=== PATIENT | male | born 1970 ===

== ENCOUNTER → 2019-02-25 | Outpatient (CLI) | payer OTHER ==
[~2019-02-25] MED LIST: IOHEXOL 180 MG/ML 10 ML VIAL. IT ONE; LIDOCAINE 1% Multi-Dose 20 ML VIAL. ID ONE
--- NOTE | 2019-02-25 12:58 | KCIC ---
CT lumbar spine exam History: Low back pain, previous back surgery Technique: CT imaging was performed of the lumbar spine after injection for lumbar myelogram. Multiplanar reconstruction images are submitted. Exposure: One or more of the following individualized dose reduction techniques were utilized for this examination: 1. Automated exposure control 2. Adjustment of the mA and/or kV according to patient size 3. Use of iterative reconstruction technique. Comparison: February 01, 2019 outside facility MRI lumbar spine exam Findings: Lumbar vertebral body stature and AP alignment are maintained. Conus terminates near the inferior aspect of L1. There is very mild inferior lumbar levoscoliosis. There is mild degenerative disc disease at L2-3 and L4-5 and to a somewhat lesser degree at L3-4. There is unfused apophysis on the right at L1. There is nonspecific lytic focus of the right iliac bone about 1.2 transverse by 1.1 cm AP. T12-L1: Spinal canal and right neural foramen are adequate, very minimal posterior narrowing of left neural foramen by facet. L1-L2: Neural foramina and spinal canal are adequate. There is [id number] facet degenerative change. L2-L3: There is moderate to severe facet degenerative change. There is minimal buckling of the ligamentum flavum. There is minimal broad disc osteophyte complex with mild indentation upon the ventral thecal sac, thecal sac not significantly narrowed. Neural foramina are adequate. L3-L4: There is fairly severe facet degenerative change. There is mild buckling of the ligamentum flavum. There is negligible disc osteophyte complex. There is overall mild attenuation of the thecal sac, adequate subarachnoid space. There is [id number] narrowing of the right neural foramen by disc osteophyte complex and facet. There is moderate to severe narrowing of the left neural foramen in part from disc osteophyte complex although there is probably a small extrusion extending above the intervertebral disc space in the inferior left neural foramen contacting the exiting left L3 nerve root, such as seen sagittal image 13 series 605. L4-L5: There is left laminectomy defect. There is moderate facet degenerative change. There is very minimal disc osteophyte complex. Spinal canal is overall adequate. There is moderate to severe narrowing of the left neural foramen by facet and disc osteophyte complex with effacement of perineural fat surrounding the exiting left L4 nerve root, also disc osteophyte complex near the undersurface proximal extraforaminal left L4 nerve root without displacement. There is overall moderate narrowing of the right neural foramen. L5-S1: There is moderate to severe facet degenerative change somewhat greater on the left. Spinal canal is adequate. There is fairly severe narrowing of the left neural foramen mostly from posteriorly by facet including by more focal osteophyte contacting the posterior surface exiting left L5 nerve root. Right neural foramen is adequate. Impression: 1. There is no significant lumbar spinal stenosis, mild attenuation of the thecal sac L3-4 and mild indentation upon the ventral thecal sac at L2-3. 2. There is neural foramina compromise as stated, more significant narrowing on the left at L3-4 through L5-S1 and to lesser degree on the right at L3-4 and L4-5. 3. There is mild degenerative disc disease greatest L3-3 and L4-5. There is mild spondylosis. 4. There is nonspecific lytic lesion of the visualized right iliac bone. This could be a hemangioma especially if there is no pain referable to this region, although nonspecific features by CT. Electronically signed by: Franki Delgado MD (02/25/2019 12:55 PM) [email or web address]
--- NOTE | 2019-02-25 13:01 | KCIC ---
Lumbar Myelogram History: Lumbar radiculopathy Technique: Patient was informed of the risks of the procedure to include pain, infection, bleeding, seizures, nerve root injury, and allergic reaction to the contrast. All questions were answered. Patient signed a written consent form for a lumbar myelogram. The patient was placed in a prone oblique position on the flouroscopy table. External site of the lower back was prepped and draped in the usual sterile fashion. Betadine was utilized for cleansing solution. 1% lidocaine was utilized for local anesthesia at the anticipated site of puncture right L4-5 interlaminar space. A 19-gauge guiding needle was advanced into the soft tissues. Through the guiding needle, a 25 gauge Mello needle was advanced until there was return of cerebral spinal fluid. Approximately 15 cc of Omnipaque 180 were then injected during fluoroscopic visualization. The needles were removed. Bandage was applied. Fluoroscopic spot images including standing images were acquired of the lumbar spine. The patient was then transferred to the CT department for CT examination of the lumbar spine. There were no immediate complications. Fluoroscopy time: 1 minute 11 seconds, 14 images Findings: There is no evidence of myelographic block. There are small anterior extradural defects L2-3, L3-4, L4-5, greatest at L2-3 and L3-4. Vertebral body stature is maintained. There is negligible posterior subluxation L3 relative to L4 created with extension. Impression: 1. There are small anterior extradural defects L2-3 through L4-5. Electronically signed by: Franki Delgado MD (02/25/2019 12:58 PM) [email or web address]
== END | disposition home or self-care (01) ==
LOC: KCIC 09:59
PROVIDERS: ATTEND Neurological Surgery
DX: M51.16 Intervertebral disc disorders with radiculopathy, lumbar region (principal); M47.27 Other spondylosis with radiculopathy, lumbosacral region; M48.07 Spinal stenosis, lumbosacral region; M25.78 Osteophyte, vertebrae; I10 Essential (primary) hypertension
CPT/HCPCS: 72132; 72265; Q9965